=== PATIENT | male | born 1990 | race African-American/Black ===

== ENCOUNTER 2020-12-15 11:27 | Emergency (ER) | payer MEDICAID ==
[~2020-12-15] VITALS: Ht 177.8 cm; Wt 74.8 kg
[2020-12-15 11:45] VITALS: BP 117/63
--- NOTE | 2020-12-15 11:50 | NUR ---
AT BEDSIDE FOR EVAL.
--- NOTE | 2020-12-15 11:58 | NUR ---
URINE SPECIMEN COLLECTED AND SENT TO LAB.
[2020-12-15] MEDS ORDERED: LIDOCAINE /MPF 1% VIAL 5 ML VIAL ONE (12:05)
[2020-12-15] MEDS ORDERED: CEFTRIAXONE 1 G VIAL ONE (12:05)
[2020-12-15] MEDS: CEFTRIAXONE 1 G VIAL IM ONE (12:09)
[2020-12-15 12:40] LABS: BILIRUBIN,URINE NEGATIVE (NEGATIVE); COLOR,URINE YELLOW (YELLOW); NITRITE, URINE NEGATIVE (NEGATIVE); PROTEIN,URINE NEGATIVE (NEGATIVE); UGLUCOSE NEGATIVE (NEGATIVE); UROBILINOGEN,URINE 0.2 EU/dL (0.2)
[2020-12-15 12:56] LABS: BACTERIA,URINE Few /HPF (None Seen); LEUKOCYTE ESTERASE ,URINE 2+ (NEGATIVE); SQUAMOUS EPITHELIAL CELL,UR Few /HPF (None Seen)
[2020-12-15] MEDS ORDERED: DOXY100C2 PO (13:07)
[2020-12-15] MEDS ORDERED: ERYT3.5O9 EACHEYE (13:07)
== END 2020-12-15 13:13 | disposition home or self-care (01) ==
LOC: ER 11:27
DX: H10.9 Unspecified conjunctivitis (principal); A64 Unspecified sexually transmitted disease; Z60.2 Problems related to living alone
CPT/HCPCS: 81001; 87086; 87491; 87591; 96372; 99283; J0696; J3490

== ENCOUNTER 2021-02-12 11:33 | Emergency (ER) | payer SELFPAY ==
[~2021-02-12] VITALS: Ht 177.8 cm; Wt 70.3 kg
[~2021-02-12 11:33] MED LIST: DOXY100C2 PO; ERYT3.5O9 EACHEYE
--- NOTE | 2021-02-12 11:33 | NUR ---
PT BIB SELF C/O L SIDED CHEST PAIN, PAINFUL TO BREATH SINCE LAST NIGHT. PT IS AAOX4, NOT IN RESPIRATORY DISTRESS, HOOKED TO ELIGIBILITY AND OCCUPANCY INTERVIEWER, KEPT RESTED AND COMFORTABLE. WILL CONTINUE TO MONITOR.
--- NOTE | 2021-02-12 12:11 | NUR ---
PT SEEN AND EXAMINED BY .
[2021-02-12 12:30] LABS: BASOPHILS % (AUTO) 0.5 % (0.0-2.0); EOSINOPHILS % (AUTO) 2.6 % (0.0-6.0); HEMATOCRIT 44 % (39-51); HEMOGLOBIN 14.7 g/dL (13.5-17.5); LYMPHOCYTES # (AUTO) 2.6 K/uL (0.8-4.8); LYMPHOCYTES % (AUTO) 41.3 % (20.0-44.0); MEAN CORPUSCULAR HGB CONC 33 g/dl (31.0-36.0); MEAN CORPUSCULAR VOLUME 91 fL (80-96); MONOCYTES # (AUTO) 0.4 K/uL (0.1-1.30); MONOCYTES % (AUTO) 5.8 % (2.0-12.0); NEUTROPHILS # (AUTO) 3.1 K/uL (1.8-8.9); NEUTROPHILS % (AUTO) 49.8 % (43.0-81.0); PLATELET COUNT (AUTO) 265 K/uL (150-450); RED BLOOD CELL COUNT(AUTO) 4.86 MIL/uL (4.5-6.0); WHITE BLOOD COUNT (AUTO) 6.2 K/uL (4.3-11.0)
[2021-02-12 12:37] LABS: CALCIUM, SERUM 8.3 mg/dL (8.5-10.1); CARBON DIOXIDE 28 mmol/L (21-32); CHLORIDE 106 mmol/L (98-107); CREATININE 1.3 mg/dL (0.6-1.3); GLUCOSE 93 mg/dL (74-106); POTASSIUM 3.9 mmol/L (3.5-5.1); SODIUM SERUM 141 mmol/L (136-145); UREA NITROGEN, BLOOD 15 mg/dL (7-18)
[2021-02-12] MEDS ORDERED: IOHEXOL-350 100 ML VIAL IV ONE (12:57)
[2021-02-12] MEDS ORDERED: IV NS 0.9% 250 ML IV ONE (12:57)
[2021-02-12] MEDS ORDERED: CT SWABBABLE VALVE TRANS SET 1 EA INFUS.SET MC ONE (12:57)
[2021-02-12] MEDS ORDERED: KETOROLAC TROMETHAMINE INJ 30 MG/ML VIAL IV ONE (13:30)
[2021-02-12] MEDS ORDERED: IBUP-1957 PO (13:53)
[2021-02-12] MEDS ORDERED: KETOROLAC TROMETHAMINE 15 MG/ML VIAL ONE (14:11)
[2021-02-12 15:01] VITALS: BP 117/58
--- NOTE | 2021-02-12 15:01 | NUR ---
IV removed. Catheter intact and site benign. Pressure and 4x4 applied to site. No bleeding noted. Patient discharged to home in stable condition. Written and verbal after care instructions given. Patient verbalizes understanding of instruction.
== END 2021-02-12 15:02 | disposition home or self-care (01) ==
LOC: ER 11:37
DX: R07.81 Pleurodynia (principal); M94.0 Chondrocostal junction syndrome [Tietze]; Z79.899 Other long term (current) drug therapy
CPT/HCPCS: 36415; 71045; 71275; 80048; 84484; 85025; 93005 ×3; 96374; 99285; J1885; J7050; Q9967